=== PATIENT | female | born 1950 | race Caucasian/White ===

== ENCOUNTER 2018-11-07 07:47 | Day surgery (SDC) | payer MEDICARE, OTHER, SELFPAY ==
[2018-10-27 10:25] VITALS: BMI 20.2
[2018-11-07] VITALS (12 sets, daily range): BP systolic 116–148; BP diastolic 57–83; PULSE 68–84; RESP 12–18; TEMP 36.2–37; O2SAT 92–100; BMI 19.3
--- NOTE | 2018-11-07 | DI.RAD.S_ITS ---
PROCEDURE: XR CERVICAL SPINE 2V OR 3V INDICATIONS: C3-4 MOBI C TECHNIQUE: 2 intraoperative fluoroscopic view(s) of the cervical spine were acquired. COMPARISON: None. FINDINGS: Intraoperative fluoroscopic images of the cervical spine shows intravertebral fusion hardware placement at C3-4 level. IMPRESSION: Fluoroscopy guidance was provided intraoperatively for C3-4 fusion. Dictated by: Hardy Hernandez M.D. on 11/07/2018 at 13:32 Approved by: Hardy Hernandez M.D. on 11/07/2018 at 13:34
[2018-11-07] MEDS: LACTATED RINGERS 1,000 ML 42 ML IV (09:07)
--- NOTE | 2018-11-07 10:16 | PM.PREOP ---
Pre-operative Note Interval Note History & Physical reviewed/Exam performed by Physician: Yes Changes to H&P: No
[2018-11-07] MEDS: CEFAZOLIN 2 GM/100 ML FROZ.PIGGY IV (11:08)
--- NOTE | 2018-11-07 11:40 | SUR.OPER ---
Supine on padded OR bed, head on pillow, towel between shoulder blades, bilateral arms padded and tucked at side, legs uncrossed, safety belt at thigh, tape over blanket over lower legs .
[2018-11-07] MEDS: THROMBIN (RECOMBINANT) 5,000 UNIT VIAL 5000 UNIT TOP (11:46)
[2018-11-07] MEDS: BUPIVACAINE 0.25% W/ EPI 30 ML VIAL 60 ML INJ (11:46)
[2018-11-07] MEDS: SODIUM CHLORIDE 0.9% 1,000 ML, GENTAMICIN 80 MG IRR (11:47)
--- NOTE | 2018-11-07 12:34 | PM.OP.1 ---
Operative Date/Time/Diagnoses Date of procedure: 11/07/18 Time of procedure: 12:34 Pre-op diagnosis: Cervical stenosis with myelopathy Post-op diagnosis: same Procedure & Clinicians Procedure: C3-4 anterior diskectomy an artificial disc replacement Use of microscope Same procedure as scheduled: Yes Indications: [age] year old female with intractable pain from cervical stenosis. They had failed conservative management and requested operative intervention. Risks and benefits of surgery were discussed and appropriate consents were obtained. Surgeon: Marcus Marino Retail Security Professional: Cora Souza Anesthesia Type: General Operative Notes Findings: None Closure Type: primary Specimen(s): none sent Prosthetic devices, grafts, tissues, transplants, or devices: Malia Mobi-C [id number] Estimated Blood Loss (mL): 10 Procedure in detail: Patient was brought to the operating room and intubated on the table. A time-out was performed. Preoperative antibiotics were given. The neck was prepped and draped in the standard sterile fashion. Using her previous incision, we made a 3 cm oblique incision on the left side. We used Bovie to go through the platysma and then did a standard anterolateral blunt dissection down to the precervical fascia. Fascia was nicked and elevated up. A marker was placed and x-ray was taken for localization. We then subperiosteally elevated up the longus colli muscles. Self-retaining retractors were placed. [place]carora pins were placed under x-ray guidance to be parallel to the endplates. We then brought in the microscope. A scalpel used to perform an annulotomy. We then used a combination of pituitaries and curettes and Kerrison to perform a complete anterior diskectomy at C3-4. We took down the PLL and used Kerrison to remove any posterior disc material and osteophytes. At the end we could from the nerve hook cephalad caudally and out the foramen and everything was opened. We distracted open with the parallel real estate management specialist. The patient had significant epidural bleeders out laterally. These were brought under control with Gelfoam thrombin and then later we used FloSeal. This was irrigated and everything was dry. We then used the horseshoes for sizing. We then used the trials. We then inserted a 15 x 17 x 5 mm size Mobi-C artificial disc replacement under fluoroscopic guidance for positioning. The traction was released and x-ray was checked again. The self-retaining retractors and Tuscarora pins were removed and final x-rays taken. The wound was irrigated. There was no bleeding. The carotid was beating nicely. The platysma was closed. The superficial was closed. The skin was closed. A sterile dressing was placed. They were then extubated and brought to recovery room with no complications. Complications: none Condition: stable Disposition: PACU Plan for aftercare: Admit under observation status. Possible discharge home today if she is doing well. With her history of DVT, she requested to be on anticoagulation. She normally has just been on aspirin but we can start Lovenox tomorrow for a few days.
[2018-11-07] MEDS: fentaNYL 100 MCG/2 ML INJ 50 MCG IV ×4 (12:53→13:20)
--- NOTE | 2018-11-07 14:46 | PC.NURSE ---
Pt is A&Ox3.. She denies pain at this time. Dressing to anterior neck is cdi. Pt wants to discharge home today. She has been up with SBA to use the bathroom and is resting comfortably. Daughter is in patients room.
--- NOTE | 2018-11-07 16:18 | PM.PNPO.1 ---
Subjective Date Patient Seen: 11/07/18 Time Patient Seen: 16:18 Interval history: She's doing great. Swallowing without difficulty, mild ache in neck. Arms feel good. Exam Vital Signs (past 8 hours): - 11/07/18 08:42 11/07/18 12:42 11/07/18 12:47 Temperature 98.6 F 97.2 F L Pulse Rate 68 74 76 Respiratory Rate 16 18 16 Blood Pressure 121/66 121/61 121/57 L Pulse Oximetry 100 92 92 11/07/18 12:52 11/07/18 13:05 11/07/18 13:16 Temperature 97.8 F Pulse Rate 80 80 84 Respiratory Rate 16 18 12 Blood Pressure 116/57 L 148/83 H 139/81 Pulse Oximetry 93 96 94 11/07/18 13:24 11/07/18 13:31 11/07/18 13:45 Temperature 97.3 F L Pulse Rate 75 69 75 Respiratory Rate 14 12 18 Blood Pressure 143/66 H 146/77 H 145/70 H Pulse Oximetry 94 95 97 11/07/18 14:15 11/07/18 14:45 11/07/18 15:45 Temperature 97.6 F 97.6 F 97.7 F Pulse Rate 72 72 76 Respiratory Rate 16 14 16 Blood Pressure 147/68 H 134/73 139/73 Pulse Oximetry 97 97 96 Oxygen Delivery Method Room Air Oxygen Flow Rate 0 Const Orientation: alert and oriented x3 Back/Spine/Pelvis Other: CDI, no swelling. 5/5 motor BUE Assessment & Plan Post-op Postoperative Procedures Operation Date: 11/07/18 09:45 Actual Procedures Side Surgeon p C3-4 Ant discectomy w/Art disc replacement Marcus Marino MD She wants to go home. Plan for DC Quality VTE Deep Vein Thrombosis/Pulmonary Embolism Present on Admission: No
[2018-11-07] MEDS: CEFAZOLIN 1 GM/50 ML FROZ.PIGGY IV (16:24)
[2018-11-07] MEDS: HYDROMORPHONE 0.5 MG INJ 0.2 MG IV (16:25)
--- NOTE | 2018-11-07 17:24 | PT.IIE ---
Current Diagnoses Disease of spinal cord, unspecified (11/07/18) Spinal stenosis, cervical region (11/07/18) Surgery Performed Operation Date: 11/07/18 09:45 Actual Procedures p C3-4 Ant discectomy w/Art disc replacement - Marcus Marino MD Surgical History (Last Updated 10/27/18 @ 10:36 by Louisa Lira, RN) Hx of removal of cyst (Acute) Hx of tubal ligation (Acute) S/P cervical spinal fusion (Acute ~1998) Medical History (Last Updated 10/27/18 @ 10:36 by Louisa Lira RN) Arrhythmia (Acute) Bilateral pulmonary embolism (Acute ~1998) Cervical myelopathy (Acute) Chronic low back pain (Acute) Chronic pain syndrome (Acute) Depression (Acute) Endocarditis (Acute) Fibromyalgia (Acute) Former smoker (Acute) GERD (gastroesophageal reflux disease) (Acute) Generalized headaches (Acute) 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) HLD (hyperlipidemia) (Acute) HSV (herpes simplex virus) infection (Acute) Heart murmur (Acute) Impending cerebrovascular accident (Acute) Left leg DVT (Acute ~1998) Nephrolithiasis (Acute) PVD (posterior vitreous detachment), both eyes (Acute ~2009) RLS (restless legs syndrome) (Acute) Renal artery occlusion (Acute) TIA (transient ischemic attack) (Acute) Tubular adenoma (Acute) Vascular disorder (Acute) Physical Therapy Inpatient Evaluation/Re-Eval M1 PT/OT-IP Prior Functional Status Start: 11/07/18 17:07 Freq: NEEDED Status: Active Protocol: Document 11/07/18 17:07 ARACELI (Rec: 11/07/18 17:22 ARACELI [id number]) Medical Review Prior Functional Status Medical History Reviewed Yes Diet/Fluid Consistency Regular Communication normal Mobility and Gait indep with the use of STC; had a fall once while picking something on the floor; states no hospitalization or severe injury Activities of Daily Living and IADL's Indep Social History Household Members none Living Arrangements House Number of Floors (Floors) One Floor Number of Stairs To Enter/Railing? 2 steps Home Equipment Straight Cane Employment Status Unknown M2 PT-IP Current Condition Start: 11/07/18 17:07 Freq: NEEDED Status: Active Protocol: Document 11/07/18 17:07 ARACELI (Rec: 11/07/18 17:22 ARACELI [id number]) Physical Therapy Current Condition Current Condition Evaluation Date 11/07/18 Treatment Diagnosis s/p C4-C5 discectomy Precautions Cervical Spine Precautions Soft Collar at all Times No Heavy Lifting Log Roll Weight Bearing Status Weight Bearing Status Partial Weight Bearing M3 PT-IP Subjective Start: 11/07/18 17:07 Freq: NEEDED Status: Active Protocol: Document 11/07/18 17:07 EA (Rec: 11/07/18 17:22 EA [id number]) Subjective Physical Therapy Visit Type Type Initial Evaluation Visit Start Time 16:45 Visit Stop Time 17:15 Total Visit Minutes 30 Physical Therapy Visit Comments Patient Comments I want to go home now. Patient Goals Go home now Therapy Pain Assessment Pain When Pain Assessed At Rest Pain Present Pain Present Pain Reported Location upper back Intensity 3 Description Acute M4 PT-IP Mobility and Gait Start: 11/07/18 17:07 Freq: NEEDED Status: Active Protocol: Document 11/07/18 17:07 EA (Rec: 11/07/18 17:22 EA [id number]) PT-Bed Mobility Assessment Rolling Type of Rolling Log Rolling Supine to Sit Supine to Sit Independent Sit to Supine Sit to Supine Independent Scooting Scooting to Edge of Bed Independent PT-Transfer Assessment Sit to and From Stand Sit to and from Stand Independent Equipment Transfer Assistive Device None Transfers Transfer Destination Bed Chair Toilet Transfer Technique stepping Transfer Ability Level of Assist Independent Comments Mobility Comments No instability noted during transfers Gait Assessment Gait Gait Assistance Required: Independent Distance (Feet) 40 Able to Maintain Weight Bearing Status Yes During Gait Assistive Devices Assistive Device None Gait Deviations General Gait Pattern Antalgic Comments Gait Comments Antalgic gait: history of sciatica PT-Balance Assessment Sitting Balance and Reactions Static Sitting Balance Ability Normal Dynamic Sitting Balance Ability Normal Standing Balance and Reactions Static Standing Balance Ability Normal Dynamic Standing Balance Ability Normal M5 PT-IP Objective Assessments Start: 11/07/18 17:07 Freq: NEEDED Status: Active Protocol: Document 11/07/18 17:07 EA (Rec: 11/07/18 17:22 EA [id number]) Orientation Orientation/Cognition Level of Alertness Alert Orientation Name Age Language Function Ability No Deficits Noted Safety Awareness Understands Safety Issues Gross Range of Motion Upper Extremity ROM Assessment Within Functional Limits Strength Upper Extremity Strength Assessment Within Functional Limits Lower Extremity Strength Assessment Within Functional Limits Coordination Assessment Gross Coordination Gross Coordination WNL Assessment Finger to Nose Test Normal Performance Pronation/Supination Test Normal Performance Foot Tapping Test Normal Performance Sensation Assessment Sensation Gross Sensation WNL Light Touch Intact Proprioception (Position) Intact M6 PT-IP Treatment Start: 11/07/18 17:07 Freq: NEEDED Status: Active Protocol: Document 11/07/18 17:07 EA (Rec: 11/07/18 17:22 EA [id number]) Physical Therapy Treatment Education Education Provided Precautions Weight Bearing Status Post-Op Packet Safety Brace Education [place] Patient M7 PT-IP Assessment and Plan Start: 11/07/18 17:07 Freq: NEEDED Status: Active Protocol: Document 11/07/18 17:07 EA (Rec: 11/07/18 17:22 EA [id number]) PT Summary Assessment and Plan Potential Rehabilitation Potential Excellent Status of Condition at Evaluation Stable Summary Impairments Gait Activity Tolerance Progress Towards Goals Progressing Toward Goals Assessment Summary Patient is not a good candidate for skilled PT at this time due to high functioning. She demonstrates normal sitting and standing static and dynamic balance without the use of AD. Patient both UE/LE's ROM and strength noted are WFL. She understand safety and pre-cautions during education and agreeable to comply. Patient would be assisted by her daughter and will stay with her for few days once d/c from the hospital. Frequency of Treatment Frequency Of Treatment Discharge Recommendations To Nursing Amount of Assist Needed Independent Discharge Recommendations PT Discharge Recommendations Home with Assistance
--- NOTE | 2018-11-07 19:35 | PC.NURSE ---
Discharge Note Pt A7O, VSS, RA. Complaint of pain, resolved w/ IV Dilaudid. Discharge instructions and prescriptions given to pt. No questions concerns. Pt belongings packed and given to daughter. Pt taken down via wheelchair to personal vehicle.
== END 2018-11-07 17:00 | disposition home or self-care (01) ==
LOC: OR 08:03 → AC 12:47
PROVIDERS: PCP Internal Medicine Geriatric Medicine; Visit Provider Orthopaedic Surgery
PROC: (CPT 22856; principal; 2018-11-07 09:45)
DX: M48.02 Spinal stenosis, cervical region (principal); G95.9 Disease of spinal cord, unspecified; Z86.711 Personal history of pulmonary embolism; Z86.718 Personal history of other venous thrombosis and embolism; G89.4 Chronic pain syndrome; F11.90 Opioid use, unspecified, uncomplicated; M19.90 Unspecified osteoarthritis, unspecified site
CPT/HCPCS: 22856; 72040; 76000; 97161; 97535; C1776; J0690; J1170; J2405; J2704; J3010